=== PATIENT | female | born 1990 | race Caucasian/White ===

== ENCOUNTER 2018-02-12 11:14 | Emergency (ER) | payer MEDICAID ==
[2018-02-12] MEDS ORDERED: ONDANSETRON 4 MG/2 ML VIAL IVP ONE (11:51)
[2018-02-12] MEDS ORDERED: NS 1,000 ML IV ONE (11:51)
[2018-02-12] MEDS ORDERED: KETAMINE 500 MG/10 ML VIAL NASAL ONE (11:52)
[2018-02-12 11:59] LABS: PLATELET COUNT 220 10^3/uL (150-400)
--- NOTE | 2018-02-12 11:59 | EDPHY ---
General Time Seen by Provider: 02/12/18 11:51 Narrative: CHIEF COMPLAINT: Abdominal pain, vomiting, diarrhea HISTORY OF PRESENT ILLNESS: Patient complains of epigastric and right upper quadrant abdominal pain. This started on Saturday evening. Described as sudden onset and a cramping type pain. Rated as severe. Radiates into the right back. He was soon followed by vomiting and diarrhea. No fever but she has had some chills and sweating. No lower abdominal pain. No trauma or injury. No urinary complaints. She was seen at an outside emergency department on Saturday with laboratory studies medications. No imaging performed. Discharged home with nausea medication and Pepcid. No improvement in her symptoms. No other associated complaints or modifying factors. REVIEW OF SYSTEMS: Ten systems reviewed and are negative unless otherwise noted in the HPI PCP: None SPECIALISTS: None PAST MEDICAL HISTORY: Denies any ongoing medical diagnoses PAST SURGICAL HISTORY: No recent surgeries. Previous laparoscopy for ectopic with right salpingectomy. SOCIAL HISTORY: Nonsmoker. No drug or alcohol use. FAMILY HISTORY: Noncontributory EXAMINATION General Appearance: Alert, no distress Head: normocephalic, atraumatic Eyes: Pupils equal and round, no conjunctival pallor or injection ENT, Mouth: Mucous membranes moist Neck: Normal inspection, supple, non-tender Respiratory: Lungs are clear to auscultation Cardiovascular: Regular rate and rhythm Gastrointestinal: Abdomen is soft and nondistended. There is tenderness in the right upper quadrant mild right CVA tenderness. Mild epigastric tenderness. No guarding. No rebound. Negative McBurney. Negative obturator. Nonacute abdomen. Back: non-tender, no bony abnormalities Neurological: A&O, nonfocal, normal gait Skin: Warm and dry, no rash no petechiae or purpura Extremities: Nontender, no pedal edema Psychiatric: Mood and affect normal DIFFERENTIAL DIAGNOSES: Including but not limited to cholecystitis, cholelithiasis, renal colic, enteritis, colitis, gastritis, gastroenteritis MDM: 11:50 a.m. Epigastric and right upper abdominal pain over the past 4 days. No tenderness in lower quadrants. No surgical abdomen at this time. I have ordered laboratory studies, medications and ultrasound of the gallbladder. She is in no acute distress with vital signs stable. 12:10 p.m. His laboratory studies are unremarkable. Ultrasound is pending. 12:45 p.m. Notified by radiologist Dr. Rogers. Ultrasound right upper quadrant unremarkable. Patient re-evaluated at this time. 1:20 p.m. Urinalysis reveals only microscopic hematuria. No infection. Suspect possible nephrolithiasis/renal colic. 2:10 p.m. Notified by radiologist Dr. Rogers. CT scan abdomen pelvis findings discussed as documented. 2:25 p.m. Patient re-evaluated. She states that the ketamine relieved her pain but "made me feel funny." We discussed the negative CT scan findings in the possibility of biliary dyskinesia versus pain not otherwise specified at this time. She does feel comfortable going home. I will provide short course of pain medication and nausea medicine. I would like her to take an [id number] antacid. She has strict ED precautions for any worsening pain, vomiting, fever or chills. I would like her to return to this emergency department as she does not have complete resolution of her pain within 24 hr. She has referral physicians for her to contact for outpatient care as well. She is comfortable with this plan and discharged home stable condition. SUPERVISION: Patient was independently examined, but I discussed the case with my secondary supervising physician Dr. Wheatley - History Smoking Status: Never smoked - Objective Vital Signs: Initial Vital Signs Temperature (C) 99.0 F 02/12/18 11:33 Heart Rate 74 02/12/18 11:33 Respiratory Rate 18 02/12/18 11:33 Blood Pressure 132/67 H 02/12/18 11:33 O2 Sat (%) 99 02/12/18 11:33 O2 Delivery Mode Room Air Allergies/Adverse Reactions: No Known Allergies Allergy (Unverified 02/12/18 11:33) Home Medications: Medication Instructions Recorded NO HOME MEDS 10/08/10 Dicyclomine [Bentyl 20 MG (*)] 20 mg PO QID PRN #12 tab 02/12/18 Ondansetron Odt [Zofran Odt 4 mg 4 mg PO Q6 PRN #12 tab 02/12/18 (*)] Promethazine HCl [Phenergan 25mg 25 mg PO Q8 PRN #12 tab 02/12/18 (*)] Zofran Odt 02/12/18 oxyCODONE HCL/ACETAMINOPHEN 1 each PO Q4-6PRN PRN #7 tablet 02/12/18 [Percocet 5-325 mg Tablet] Laboratory Results: Laboratory Results 02/12/18 11:43 02/12/18 11:43 Medications Given: Discontinued Medications Sodium Chloride (Ns) 1,000 mls @ 0 mls/hr IV EDNOW ONE; Wide Open PRN Reason: Protocol Stop: 02/12/18 11:52 Last Admin: 02/12/18 12:48 Dose: 1,000 mls Ketamine HCl (Ketamine) 50 mg NASAL EDNOW ONE Stop: 02/12/18 11:53 Last Admin: 02/12/18 12:50 Dose: 50 mg Ondansetron HCl (Zofran) 4 mg IVP EDNOW ONE Stop: 02/12/18 11:52 Last Admin: 02/12/18 12:48 Dose: 4 mg Departure - Departure Disposition: Home, Routine, Self-Care Clinical Impression: Right upper quadrant abdominal pain Nausea & vomiting Qualifiers: Vomiting type: unspecified Vomiting Intractability: non-intractable Qualified Code(s): R11.2 - Nausea with vomiting, unspecified Condition: Good Instructions: Clear Liquid Diet (ED), Acute Abdominal Pain (ED) Additional Instructions: 1. Pain medication as prescribed as needed 2. Nausea medications as prescribed as needed 3. Contact the on-call primary care physician as provided to establish an for outpatient follow-up 4. Return to emergency department in 24 hr if you do not have complete resolution of the symptoms. Return sooner for any worsening of symptoms 5. Clear liquid diet as discussed. Advance slowly as tolerated Referrals: Meghan Blunt MD [Medical Doctor] - As per Instructions Stand Alone Forms: Work Excuse Prescriptions: Dicyclomine [Bentyl 20 MG (*)] 20 mg PO QID PRN #12 tab PRN Reason: abdominal pain Ondansetron Odt [Zofran Odt 4 mg (*)] 4 mg PO Q6 PRN #12 tab PRN Reason: Nausea/Vomiting, Use 1st oxyCODONE HCL/ACETAMINOPHEN [Percocet 5-325 mg Tablet] 1 each PO Q4-6PRN PRN #7 tablet PRN Reason: Pain, Breakthrough Promethazine HCl [Phenergan 25mg (*)] 25 mg PO Q8 PRN #12 tab PRN Reason: Nausea/Vomiting, Use 1st
[2018-02-12] MEDS ORDERED: IOPAMIDOL (ISOVUE-300) 100 ML BTL ONE (13:31)
[2018-02-12 14:55] VITALS: BP 129/76
== END 2018-02-12 14:55 | disposition home or self-care (01) ==
DX: R10.11 Right upper quadrant pain (principal); R11.2 Nausea with vomiting, unspecified
CPT/HCPCS: 96374; J2405; Q9967

== ENCOUNTER 2018-02-17 07:51 | Observation (INO) | payer MEDICAID ==
--- NOTE | 2018-02-17 08:15 | EDPHY ---
H & P Time Seen by Provider: 02/17/18 07:52 HPI/ROS: CHIEF COMPLAINT: Abdominal pain HISTORY OF PRESENT ILLNESS: Patient was seen here on February 12 for abdominal pain that started 9 days ago. She describes it as center in the"pit of my stomach"abdominal pain which is located in her epigastric region and radiates to the weight. It is described as a"heavy weight"associated with multiple episodes of nausea and vomiting and radiating to her back. Not associated with coughing or chest pain or shortness of breath. She site primary care physician in [place] on Saturday who advised proton pump inhibitor which the patient did not start yet because it was 200 dollars at the pharmacy. Today she presents with continued severe symptoms. She is tearful and says that she can't go to work because the pain is so severe. Continuous for the last 9 days. REVIEW OF SYSTEMS: Eye: no change in vision ENT: no sore throat Cardiac: no chest pain or syncope Pulmonary: no cough or SOB Abdomen: HPI no diarrhea Musculoskeletal: Pain radiates to the right back but no trauma or injury. Skin: no rash Neuro: no headache Constitutional: no fever : no urinary symptoms, no vaginal bleeding or discharge A comprehensive 10 point review of systems is otherwise negative aside from elements mentioned in the history of present illness. PAST MEDICAL HISTORY: Ectopic 3 years ago Social history: Negative for tobacco or alcohol General Appearance: Alert and conversant, cooperative. Eyes: No scleral icterus. ENT, Mouth: Dry mucous membranes. Respiratory: Normal respiratory effort, breath sounds equal, lungs are clear to auscultation. Cardiovascular: Regular rate and rhythm. Gastrointestinal: Some epigastric tenderness but no rebound or guarding and negative Alcantar sign. Neurological: Alert, face symmetric, normal motor and sensory in extremities. Skin: Warm and dry, no rashes. Musculoskeletal: No peripheral edema. Psychiatric: Appears tearful. Emergency Department course/MDM: CT scan and ultrasound reviewed from February 12 are negative. Patient continues to be severely symptomatic will be treated with IV fluids, Reglan 10 mg IV, Protonix 40 mg IV. She took Zofran at home without relief and has not been taking Phenergan. Plan for likely admission with GI consultation for intractable symptoms, patient in agreement. 931: Discussed with Hu will consult for GI. Lab reviewed, patient updated. Recently on clear liquid diet, tells me was not able to keep any food down this morning. Smoking Status: Never smoked Constitutional: Initial Vital Signs Temperature (C) 36.5 C 02/17/18 07:57 Heart Rate 72 02/17/18 07:57 Respiratory Rate 24 H 02/17/18 07:57 Blood Pressure 126/90 H 02/17/18 07:57 O2 Sat (%) 99 02/17/18 07:57 O2 Delivery Mode Room Air Allergies/Adverse Reactions: No Known Allergies Allergy (Unverified 02/17/18 07:55) Home Medications: Medication Instructions Recorded Dicyclomine [Bentyl 20 MG (*)] 20 mg PO QID PRN #12 tab 02/12/18 Ondansetron Odt [Zofran Odt 4 mg 4 mg PO Q6 PRN #12 tab 02/12/18 (*)] Promethazine HCl [Phenergan 25mg 25 mg PO Q8 PRN #12 tab 02/12/18 (*)] Zofran Odt 02/12/18 oxyCODONE HCL/ACETAMINOPHEN 1 each PO Q4-6PRN PRN #7 tablet 02/12/18 [Percocet 5-325 mg Tablet] Medical Decision Making - Diagnostics EKG Interpretation: 12-lead EKG interpreted by me; official reading is in trace master. My interpretation is sinus rhythm, normal intervals, no ischemic changes. Differential Diagnosis: Differential diagnosis considered for abdominal pain including but not limited to appendicitis, cholecystitis, pancreatitis, gastritis and urinary tract infection. Consult/Admit Bed Type: [place] [id number] - Data Points Laboratory Results: Laboratory Results 02/17/18 08:20 02/17/18 08:20 02/17/18 02/17/18 02/17/18 08:20 08:20 08:20 WBC 4.70 10^3/uL 10^3/uL (3.80-9.50) RBC 4.84 10^6/uL 10^6/uL (4.18-5.33) Hgb 13.8 g/dL g/dL (12.6-16.3) Hct 41.4 % % (38.0-47.0) MCV 85.5 fL fL (81.5-99.8) MCH 28.5 pg pg (27.9-34.1) MCHC 33.3 g/dL g/dL (32.4-36.7) RDW 12.8 % % (11.5-15.2) Plt Count 234 10^3/uL 10^3/uL (150-400) MPV 10.4 fL fL (8.7-11.7) Neut % (Auto) 68.6 % % (39.3-74.2) Lymph % (Auto) 22.3 % % (15.0-45.0) Door % (Auto) 6.0 % % (4.5-13.0) Eos % (Auto) 1.9 % % (0.6-7.6) Baso % (Auto) 0.6 % % (0.3-1.7) Nucleat RBC Rel Count 0.0 % % (0.0-0.2) Absolute Neuts (auto) 3.22 10^3/uL 10^3/uL (1.70-6.50) Absolute Lymphs (auto) 1.05 10^3/uL 10^3/uL (1.00-3.00) Absolute Monos (auto) 0.28 10^3/uL L 10^3/uL (0.30-0.80) Absolute Eos (auto) 0.09 10^3/uL 10^3/uL (0.03-0.40) Absolute Basos (auto) 0.03 10^3/uL 10^3/uL (0.02-0.10) Absolute Nucleated RBC 0.00 10^3/uL 10^3/uL (0-0.01) Immature Gran % 0.6 % % (0.0-1.1) Immature Gran # 0.03 10^3/uL 10^3/uL (0.00-0.10) Sodium 142 mEq/L mEq/L (135-145) Potassium 4.1 mEq/L mEq/L (3.3-5.0) Chloride 105 mEq/L mEq/L (97-110) Carbon Dioxide 25 mEq/l mEq/l (22-31) Anion Gap 12 mEq/L mEq/L (8-16) BUN 10 mg/dL mg/dL (7-23) Creatinine 0.7 mg/dL mg/dL (0.6-1.0) Estimated GFR > 60 Glucose 83 mg/dL mg/dL (70-100) Calcium 9.1 mg/dL mg/dL (8.5-10.4) Total Bilirubin 0.3 mg/dL mg/dL (0.1-1.4) Conjugated Bilirubin 0.3 mg/dL mg/dL (0.0-0.5) Unconjugated Bilirubin 0.0 mg/dL mg/dL (0.0-1.1) AST 23 IU/L IU/L (14-46) ALT 23 IU/L IU/L (9-52) Alkaline Phosphatase 69 IU/L IU/L (38-126) Total Protein 7.2 g/dL g/dL (6.3-8.2) Albumin 4.0 g/dL g/dL (3.5-5.0) Lipase 96 IU/L IU/L (23-300) Beta HCG, Qual NEGATIVE Medications Given: Lactated Ringer's (Lr) 1,000 mls @ 0 mls/hr IV CONT JANAE PRN Reason: Per Protocol Stop: 08/16/18 09:59 Last Admin: 02/17/18 10:09 Dose: 1,000 mls Discontinued Medications Fentanyl (Sublimaze) 50 mcg IVP EDNOW ONE Stop: 02/17/18 08:59 Last Admin: 02/17/18 09:14 Dose: 50 mcg Sodium Chloride (Ns) 1,000 mls @ 0 mls/hr IV EDNOW ONE; Wide Open PRN Reason: Protocol Stop: 02/17/18 08:26 Last Admin: 02/17/18 08:49 Dose: 1,000 mls Metoclopramide HCl (Reglan Injection) 10 mg IVP EDNOW ONE Stop: 02/17/18 08:26 Last Admin: 02/17/18 08:50 Dose: 10 mg Pantoprazole Sodium (Protonix) 40 mg IVP EDNOW ONE Stop: 02/17/18 08:27 Last Admin: 02/17/18 08:50 Dose: 40 mg Departure - Departure Disposition: To OP Cath/Surgery Clinical Impression: Abdominal pain Qualifiers: Abdominal location: epigastric Qualified Code(s): R10.13 - Epigastric pain Condition: Good
[2018-02-17] MEDS ORDERED: METOCLOPRAMIDE 10 MG/2 ML VIAL IVP ONE (08:25)
[2018-02-17] MEDS ORDERED: NS 1,000 ML IV ONE (08:25)
[2018-02-17] MEDS ORDERED: PANTOPRAZOLE SODIUM 40 MG VIAL IVP ONE (08:26)
[2018-02-17] MEDS ORDERED: fentaNYL 100 MCG/2 ML INJ IVP ONE (08:58)
[2018-02-17 09:03] LABS: PLATELET COUNT 234 10^3/uL (150-400)
--- NOTE | 2018-02-17 09:47 | CPEKG ---
Heart Rate: 63 RR Interval: 952 P-R Interval: 156 QRSD Interval: 88 QT Interval: 432 QTC Interval: 443 P Lavina: 31 QRS Lavina: 87 T Wave Lavina: 26 EKG Severity - NORMAL ECG - EKG Impression: SINUS RHYTHM Electronically Signed By: Sylvester Cleary 17-Feb-2018 09:48:51
[2018-02-17] MEDS ORDERED: LR 1,000 ML IV SCH (10:00)
--- NOTE | 2018-02-17 10:20 | PDANEPAE ---
ANE History of Present Illness abdominal pain, nausea and vomiting ANE Past Medical History - Cardiovascular History Hx Hypertension: No Hx Arrhythmias: No Hx Chest Pain: No Hx Coronary Artery / Peripheral Vascular Disease: No Hx CHF / Valvular Disease: No Hx Palpitations: No - Pulmonary History Hx COPD: No Hx Asthma/Reactive Airway Disease: No Hx Recent Upper Respiratory Infection: Yes Hx Oxygen in Use at Home: No Hx Sleep Apnea: No Pulmonary History Comment: pt. feels she may be getting a cold - Endocrine History Hx Diabetes: No Hypothyroid: No Hyperthyroid: No Endocrine History Comment: hx of hypothhyroidism in past, unclear whether she should be on medication - Renal History Hx Renal Disorders: No - Liver History Hx Hepatic Disorders: No - Neurological & Psychiatric Hx Hx Neurological and Psychiatric Disorders: Yes Neurological / Psychiatric History Comment: hx of depression/anxiety on meds until 8 years ago, pt reports no help from meds - Cancer History Hx Cancer: No - Congenital Disorder History Hx Congenital Disorders: No - GI History GERD: no Hx Gastrointestinal Disorders: Yes Gastrointestinal History Comment: current abdominal pain - Chronic Pain History Chronic Pain: No - Surgical History Prior Surgeries: s/p GA for ectopic ANE Review of Systems Review of Systems: - Exercise capacity METS (RN): 4 METS ANE Patient History - Allergies Allergies/Adverse Reactions: No Known Allergies Allergy (Unverified 02/17/18 07:55) - Home Medications Home Medications: Zofran Odt 02/12/18 [Last Taken Unknown] - NPO status NPO Since - Liquids (Date): 02/17/18 NPO Since - Liquids (Time): 08:00 NPO Since - Solids (Date): 02/16/18 NPO Since - Solids (Time): 12:00 - Anes Hx Anes Hx: no prior problems - Smoking Hx Smoking Status: Never smoked - Alcohol Use Alcohol Use: None - Family Anes Hx Family Anes Hx: none ANE Labs/Vital Signs - Labs Result Diagrams: 02/17/18 08:20 02/17/18 08:20 - Vital Signs Blood Pressure: 131/77 Heart Rate: 72 Respiratory Rate: 20 O2 Sat (%): 92 Height: 157.48 cm Weight: 63.503 kg ANE Physical Exam - Airway Neck exam: FROM Mallampati Score: Class 1 Mouth exam: normal dental/mouth exam - Pulmonary Pulmonary: clear to auscultation - Cardiovascular Cardiovascular: regular rate and rhythym - ASA Status ASA Status: II ANE Anesthesia Plan Anesthesia Plan: GA with mask
[2018-02-17] MEDS ORDERED: MIDAZOLAM 2 MG/2 ML VIAL IVP ONE ×2 (10:23→10:31)
[2018-02-17] MEDS ORDERED: MIDAZOLAM 2 MG/2 ML VIAL ONE (10:25)
[2018-02-17] MEDS ORDERED: fentaNYL 100 MCG/2 ML INJ ONE (10:26)
[2018-02-17] MEDS ORDERED: ONDANSETRON DISINTEGRATING 4 MG TAB PO PRN (10:27)
[2018-02-17] MEDS ORDERED: ACETAMINOPHEN 325 MG TAB PO PRN (10:27)
[2018-02-17] MEDS ORDERED: PROMETHAZINE HCL 25 MG/ML INJ IVP PRN (10:27)
[2018-02-17] MEDS ORDERED: ONDANSETRON 4 MG/2 ML VIAL IVP PRN ×2 (10:27→10:41)
[2018-02-17] MEDS ORDERED: PROPOFOL 200 MG/20 ML VIAL ONE (10:27)
[2018-02-17] MEDS ORDERED: NS 1,000 ML IV SCH (10:30)
[2018-02-17] MEDS ORDERED: fentaNYL 100 MCG/2 ML INJ IVP PRN (10:41)
[2018-02-17] MEDS ORDERED: NALOXONE HCL 0.4 MG/ML INJ IVP PRN (10:41)
--- NOTE | 2018-02-17 10:44 | GIREPORT ---
[facility] - Endoscopy Department Patient Name: Juanita Miller Procedure Date: 02/17/2018 10:15 AM Patient Type: Inpatient Attending MD/ ER Physician: Jarod Lui MD Procedure: Upper GI endoscopy Indications: Upper abdominal pain, Nausea with vomiting Patient Profile: 27 year old female presents for evaluation of epigastric abdominal pain , nausea, and vomiting. Providers: Jarod Lui MD Medicines: Monitored Anesthesia Care Complications: No immediate complications. Estimated blood loss: Minimal. Description of Procedure: After obtaining informed consent, the endoscope was passed under direct vision. Throughout the procedure, the patient's blood pressure, pulse, and oxygen saturations were monitored continuously. The Endoscope was intro duced through the mouth, and advanced to the second part of duodenum. [facility] er GI endoscopy was accomplished without difficulty. The patient tolerated th e procedure well. Findings: The examined esophagus was normal. Patchy mildly erythematous mucosa was found in the gastric body and in the gastric antrum. Biopsies were taken with a cold forceps for histology. The examined duodenum was normal. Biopsies for histology were taken wit h a cold forceps for evaluation of celiac disease. Estimated Blood Loss: Estimated blood loss was minimal. Post Op Diagnosis: - Normal esophagus. - Erythematous mucosa in the gastric body and antrum. Biopsied. - Normal examined duodenum. Biopsied. - Etiology? No obvious cause of pain seen. Await biopsy results. Would start IV PPI BID and clear liquid diet. If pain persists, would consider tria l of antispasmodic. Recommendation: - Return patient to [facility] for [facility] care. - Clear liquid diet. - Use a proton pump inhibitor IV BID. - Thank you for allowing me to participate in the care of your patient. Attending Participation: I personally performed the entire procedure. Jarod Lui MD Jarod Lui MD 02/17/2018 10:44:02 AM This report has been signed electronicallyJarod Lui MD Number of Addenda: 0 Note Initiated On: 02/17/2018 10:15 AM [email or web address]}
--- NOTE | 2018-02-17 10:47 | GCON ---
[f rep st] CONSULTATION DATE OF CONSULTATION: 02/17/2018 REFERRING PHYSICIAN: Stacey May MD REASON FOR CONSULTATION: Abdominal pain/nausea, vomiting. CHIEF COMPLAINT: Nausea/vomiting/epigastric abdominal pain. HISTORY OF PRESENT ILLNESS: The patient is a 27-year-old female, who presents to [facility] with complaints of abdominal pain, nausea, and vomiting. Juanita was doing well until approximately 9 days ago when she started experiencing a pain in her upper abdomen. The pain was mainly in the right and left sides which she described as a burning sensation. She also developed a dull pain in the mid epigastrium. This pain occurred on a daily basis in a waxing and waning nature. The pain can last hours in duration. The pain did radiate to the back occasionally. She feels the symptoms are exacerbated by oral intake with no alleviating factors. She also had some complaints of having diarrhea. She did have minimal shortness of breath last week. She was placed on PPI therapy, which she has not started yet. She denies any chest pain, dysphagia, odynophagia, or blood in the stool. She does have significant nausea and vomiting, which is mainly dry heaves at this time. I am asked by Dr. May to evaluate Juanita in consultation regarding her upper abdominal pain, nausea, and vomiting. PAST MEDICAL HISTORY: Ectopic . PAST SURGICAL HISTORY: Ectopic . MEDICATIONS: None. ALLERGIES: NKDA. SOCIAL HISTORY: No significant alcohol or tobacco use. FAMILY HISTORY: She denies any history of colon cancer or stomach cancer. REVIEW OF SYSTEMS: A 14-point comprehensive review of systems was asked. Pertinent positives and negatives per HPI. PHYSICAL EXAM: VITALS: Temp 36.5, heart rate 72, blood pressure 126/90. GENERAL: Awake, alert, and oriented x3. HEENT: Anicteric sclerae. Moist mucosa. NECK: No JVD. CARDIOVASCULAR: Regular rate and rhythm. Positive S1 , S2. No gallops appreciated. LUNGS: Clear to auscultation bilaterally. No wheezing, rales or rhonchi. ABDOMEN: Soft. Tender in the midepigastrium. No guarding, rebound. Positive bowel sounds. EXTREMITIES: No clubbing, cyanosis or edema. NEUROLOGIC: Cranial nerves 2 through 12 grossly intact. PSYCH: Normal affect. SKIN: No rash. MUSCULOSKELETAL: No obvious joint effusion. BLOOD WORK: WBCs 4.7, hemoglobin 13.8, platelets 234. AST 23, ALT 23, alkaline phosphatase 69. Beta HCG negative. Sodium 142, potassium 4.1, creatinine 0.7. Abdominal CT on 02/12/2018 with IV contrast: No acute findings on examination of the abdomen and pelvis. ASSESSMENT AND PLAN: 1. Upper abdominal pain- with nausea and vomiting. Etiology? Peptic ulcer disease versus infectious versus other? At this time, recommend to proceed with upper endoscopy to delineate the cause of her symptoms. The risks, benefits, and alternatives of the procedure were discussed in great detail with the patient. The risk of infection, bleeding, perforation, and sedation were discussed. All questions answered. Informed consent was obtained. /[id number]/MODL [id number]
--- NOTE | 2018-02-17 15:04 | GHP ---
[f rep st] HISTORY AND PHYSICAL DATE OF ADMISSION: 02/17/2018 CHIEF COMPLAINT: Abdominal pain. HISTORY OF PRESENT ILLNESS: A 27-year-old female with limited past medical history, who presents wit h complaints of abdominal pain that has been markedly worse over the course of the last week. The pa chris was 1st evaluated in the outpatient setting approximately 1 week ago with complaints of epigast tresa and right upper quadrant abdominal pain. The patient describes that it began and then became mar kedly more severe approximately 72 hours prior to presentation here. Patient was evaluated and place d on a liquid diet in hopes of settling whatever her complaints were. She developed diarrhea at this point in time and did not have resolution of her symptoms. She therefore presented for evaluation i n the emergency department on 02/12/2018. The patient underwent CT imaging as well as ultrasound fern ging, both of which were negative for any obvious explanation for her discomfort. She returns today with persisting symptoms if not more severe now associated with limited oral intake and nausea with s ome nonbloody vomiting. Patient denies continued diarrhea the day of presentation. Reports she had been mildly constipated, passing pellet-like stools that were not dark and not bloody. The patient d enies dysuria. Denies hematuria. Denies any new rashes, myalgias, arthralgias. Has had mild headac he. No vision changes. No dysphagia. No chest pain. No shortness of breath. No palpitations. PAST MEDICAL HISTORY: None. SOCIAL HISTORY: Patient denies tobacco, denies alcohol. Reports use of marijuana. FAMILY HISTORY: Negative for heart disease or lung disease. REVIEW OF SYSTEMS: A 10-point review of systems is negative with the exception of that reported in t he HPI. PHYSICAL EXAMINATION: VITAL SIGNS: Blood pressure 102/63, heart rate 61, respiratory rate 16, 95% o n room air, temperature 36.1. GENERAL: This is a healthy-appearing young female, lying flat in bed. HEENT: Notable for dry mucous membranes. Eye exam is negative for any icterus. CARDIAC: Patient is regular rate and rhythm. PULMONARY: She is clear to auscultation bilaterally. GASTROINTESTINAL : Positive bowel sounds. ABDOMEN: Soft and nontender. Mild palpation does have increased pain in the right upper quadrant on deeper palpation. No rebound or guarding. MUSCULOSKELETAL: Negative fo r any lower extremity edema. SKIN: Negative for any rashes. NEUROLOGIC: She is a bit somnolent aft er anesthesia for her EGD. PSYCHIATRIC: She is cooperative on interview and examination. DATA: White count 4.7, hematocrit 41.4, platelets of 234. Sodium 142, creatinine 0.7, potassium 4.1 , calcium 9.1. Beta HCG negative. Liver function tests are normal. CT of the abdomen which I personally reviewed and interpreted, shows no acute abnormalities or explan ations for her pain. ASSESSMENT AND PLAN: This is a 27-year-old female presenting with abdominal pain: 1. Persistent abdominal discomfort. Patient was admitted for EGD evaluation. Procedure has just be en completed. Reports have not populated. We will follow the results of this study. Continue as ne eded antiemetics IV. The patient did receive some Reglan in the emergency department without clear a ssistance in her symptoms. We will send urinalysis as well as urine drug screen as the patient is qu ite somnolent. We will continue IV fluids until she is able to take more adequate p.o. 2. Prophylaxis with Lovenox. 3. Diet. Clear liquid. Can advance as she tolerates. DISPOSITION: I expect less than 2 midnights if the patient recovers well from her EGD and is able to tolerate p.o., she should be a candidate for disposition tomorrow. I discussed the case with the em ergency room physician. Patient will be triaged to the endoscopy suite for EGD. /[id number]/MODL
[2018-02-17 15:38] VITALS: BP 117/74
--- NOTE | 2018-02-17 15:51 | POSTANESTH ---
Post Anesthetic Evaluation Cardiovascular Status: Normal, Stable Respiratory Status: Normal, Stable Level of Consciousness/Mental Status: Can Participate in Eval Pain Control: Adequate, Prn Tx Ordered Nausea/Vomiting Control: Adequate, Prn Tx Ordered Complications Possibly Related to Anesthesia: None Noted
--- NOTE | 2018-02-17 18:04 | GDS ---
[f rep st] DISCHARGE SUMMARY DISCHARGE DIAGNOSES: 1. Abdominal pain. 2. Nausea. HISTORY OF PRESENT ILLNESS: A 27-year-old female who presents with newer onset abdominal pain obstru cting her ability to tolerate p.o. in the outpatient setting. For details of patient's initial prese ntation, please see the history and physical dated 02/17/2018. CONSULTATIVE SERVICES: Gastroenterology. PROCEDURES: 02/17/2018, patient underwent EGD which showed erythema of the mucosa in the gastric bod y and antrum. This is biopsied. No obvious sources of pain are identified. HOSPITAL COURSE BY ISSUE: Abdominal pain. Patient was admitted, kept n.p.o., taken for EGD. Biopsi es were obtained. She has been initiated on twice daily PPI, tolerating clear liquids, and has reque sted disposition home to care for her 2-1/2-year-old child. Patient has been instructed to follow in the outpatient setting with Gastroenterology for her biopsy results. She is to continue twice daily PPI which has been scripted and provided to her prior to discharge. Patient will follow with Dr. Ra gonzalez in the next 1-2 weeks for post disposition followup. I spent greater than 30 minutes in the planning and coordination of this discharge. PENDING STUDIES: At the time of discharge include gastric biopsies. /[id number]/MODL
[2018-02-17] MEDS ORDERED: PANTOPRAZOLE SODIUM 40 MG VIAL IVP SCH (21:00)
[2018-02-18] MEDS ORDERED: ENOXAPARIN 40 MG/0.4 ML SYR SC SCH (09:00)
== END 2018-02-17 18:57 | disposition home or self-care (01) ==
LOC: FOB 11:25
PROVIDERS: ADMIT Hospitalist; ATTEND Hospitalist
DX: R10.13 Epigastric pain (principal); R10.11 Right upper quadrant pain
CPT/HCPCS: 93005; 96361; 96374; 96375; 99285; G0378; 80307; G0480; J2250; J2550; J2704; J2765; J3010